=== PATIENT | female | born 1970 | race Caucasian/White ===

== ENCOUNTER → 2017-04-22 | Day surgery (SDC) | payer OTHER ==
[~2017-04-22] MED LIST: ANUSOL-HC SUPP25 M1 PR; FLONASE ALLERG9.9 ML; MULTI-DAY VITAM1 TAB PO; NO MEDICATIONS; SUDAFED60 MG PO
--- NOTE | ~2017-04-22 | OR ---
Unit #: [id number] #: [id number] Patient: ZENA ROSE [id number] [address] [id number] MR#: [id number] NAME: ZENA ROSE ROOM: Date of Procedure: 04/22/2017 Admission Date: 04/22/2017 Surgeon: Leodan Marsh M.D. : 1970 Attending Physician: Leodan Marsh M.D. Primary Care Physician: Carmen Reynoso P.A.-C.. OPERATIVE REPORT PROCEDURES PERFORMED Esophagogastroduodenoscopy with biopsy and colonoscopy to cecum. INDICATIONS FOR PROCEDURE The patient with history of adenomatous polyps in the past, also with chronic dyspepsia and nausea and bloating, undergoing evaluation with upper endoscopy and colonoscopy. MEDICATIONS Monitored anesthesia. POSTOPERATIVE FINDINGS 1. Small hiatal hernia, possible small Mcgraw's. Biopsies taken. 2. Chronic appearing gastritis. Biopsies taken. 3. Normal duodenum and distal duodenum. 4. Colonoscopy completed to cecum and terminal ileum. Colonic mucosa was normal throughout. Prep was good. 5. No polyps, masses, or colitis. PLAN Given her history, recommend colonoscopy in 5 years. Follow up on the pathology report. Trial of PPIs for now. DESCRIPTION OF PROCEDURE The patient was explained of the procedure, risks, and benefits along with the risks and benefits of anesthesia. She was brought to the endoscopy room. Propofol anesthesia was given. Bite block was placed. The scope was passed down the mouth into the esophagus, stomach, duodenum, and distal duodenum. Findings as described. Biopsies taken. Gently, I pulled it out of the patient's mouth. At this time, she was turned around and repositioned for colonoscopy. Rectal exam was done, which was normal. Colonoscope was lubricated, passed up the rectum, advanced under direct vision all the way to the cecum. Cecum was identified by ileocecal valve and appendiceal orifice. Terminal ileum was normal. Colonic mucosa was normal. No polyps or masses were seen. I retroflexed in the rectum, small hemorrhoids seen. The scope was gently pulled out. She tolerated it well. Dictated by... Unit #: [id number] #: [id number] Patient: MILTON,Arabella Landrum/familia TD: 04/22/2017 18:21 JOB #: [id number] OPERATIVE REPORT Page 1 of 1 X Leodan Marsh MD PROCEDURE OPERATIVE NOTE
[2017-04-22 09:01] LABS: BASOPHIL# 0.1 X10e3 (0-0.3); BASOPHIL% 1.3 % (0-2.5); EOSINOPHIL% 0.6 % (0.0-7.0); HEMATOCRIT 41.2 % (35.0-45.0); HEMOGLOBIN 13.9 gm/dL (12.0-16.0); LYMPHOCYTE# 1.4 X10e3 (1.0-3.5); LYMPHOCYTE% 25.4 % (17.0-45.0); MEAN CELL VOLUME 94.9 FL (83-96); MEAN CORPUSCULAR HGB CONC 33.7 g/dL (30-36); MEAN PLATELET VOLUME 8.8 FL (6.5-11.5); MONOCYTE# 0.4 X10e3 (0-1.0); NEUTROPHIL# 3.5 X10e3 (1.5-7.1); NEUTROPHIL% 64.7 % (40-75); PLATELET COUNT 217 X10e3 (140-420); RED BLOOD COUNT 4.34 X10e (3.90-5.30); RED CELL DISTRIBUTION WIDTH 12.6 % (11.0-15.5); WHITE BLOOD COUNT 5.5 X10e3 (4.0-10.5)
[2017-04-22 09:03] LABS: DIFF IND NO
[2017-04-22 09:26] LABS: ALBUMIN SERUM 4.3 g/dL (3.5-5.0); BILIRUBIN,TOTAL 0.7 mg/dL (0.2-2.0); BUN/CREATININE RATIO 12.85; CALCIUM SERUM 9.5 mg/dL (8.4-10.2); CREATININE SERUM 0.7 mg/dL (0.6-1.4); GLOM FILT RATE Estimated 104.6 mL/min (>60); POTASSIUM 3.9 mmol/L (3.5-5.1); PROTEIN TOTAL SERUM 6.9 g/dL (6.0-8.3)
[2017-04-22 09:44] LABS: CHOLESTEROL 178 mg/dL (0-200); HDL CHOLESTEROL 89 mg/dL (35-95); LDL CHOLESTEROL 74 mg/dL (-130); LDL/HDL RATIO 1 RATIO (0-4); TRIGLYCERIDES 74 mg/dL (10-160)
== END | disposition home or self-care (01) ==
LOC: COPS 06:04
PROVIDERS: Internal Medicine
DX: Z12.11 Encounter for screening for malignant neoplasm of colon (principal); K44.9 Diaphragmatic hernia without obstruction or gangrene; K29.50 Unspecified chronic gastritis without bleeding; K21.0 Gastro-esophageal reflux disease with esophagitis; K64.9 Unspecified hemorrhoids; F17.210 Nicotine dependence, cigarettes, uncomplicated; Z86.010 Personal history of colon polyps; Z88.5 Allergy status to narcotic agent; Z79.899 Other long term (current) drug therapy; Z90.710 Acquired absence of both cervix and uterus; Z98.890 Other specified postprocedural states
CPT/HCPCS: 80053; 80061; 84443; 85025; 88305; 88312